=== PATIENT | female | born 1980 | race Caucasian/White ===

== ENCOUNTER → 2019-09-04 10:00 | Outpatient (CLI) | payer OTHER, SELFPAY ==
[2019-09-13 15:22] LABS: HPV APTIMA, High Risk Negative (Negative); HPV Reflexed? YES, CHARGE PATIENT
== END ==
PROVIDERS: Referring Provider Obstetrics & Gynecology; Visit Provider Obstetrics & Gynecology
DX: Z12.4 Encounter for screening for malignant neoplasm of cervix (principal)
CPT/HCPCS: 87624; 88175; G0145

== ENCOUNTER → 2019-10-17 15:05 | Outpatient (CLI) | payer OTHER, SELFPAY ==
--- NOTE | 2019-10-17 | IMM_PTH ---
PATIENT: SHIVA MERCADO LOC: [facility] U#:[id number] AGE/SX: 45/F ROOM: RE10/17/[address]: Dr. 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 Localization is made via biotin free immunoperoxidase method. Appropriate controls are performed and reacted as expected. Results on target cell population are indicated in the following table: RESULTS: ANTIBODY / CLONE RESULT P16 (E6H4) negative Ki-67 (30-9) negative These tests were developed and their performance characteristics determined by [facility]. They may not have been cleared or approved by the [place]. Food and Drug Administration. The FDA has determined that such clearance or approval is not necessary. The above immunohistochemical/dualISH markers are ordered and reviewed by the Pathologist. INTERPRETATION: A. Four quadrant of cervix: No evidence of dysplasia AM:cc 10/22/19
--- NOTE | 2019-10-17 15:05 | CER_PTH ---
PATIENT: SHIVA MERCADO LOC: [facility] U#:[id number] AGE/SX: 45/F ROOM: RE10/17/[address]: Dr. 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 Mild chronic inflammation. See comment. B. Endocervix, curettings: Strips of benign superficial endocervix. No evidence of dysplasia. AM:james 10/19/19 COMMENT A. Results from immunohistochemistry ([id number]) for surrogate HPV marker (p16) will be reported separately. Case has been reviewed in consultation with Dr. Bernabe who concurs with the above diagnosis. IDC:[email or web address] MICROSCOPIC DESCRIPTION Slides are reviewed. GROSS DESCRIPTION A - Received in fixative is one container labeled with the patient's name and designated four quadrant of cervix. The specimen consists of multiple irregular fragments of light navarrete soft tissue that in aggregate measure 0.5 x 0.5 x 0.1 cm. The specimen is totally submitted in one cassette. B - Received in fixative is one container labeled with the patient's name and designated ECC. The specimen consists of multiple fragments of hemorrhagic mucoid tissue that in aggregate measure 2 x 1..5 x 0.2 cm. The specimen is totally submitted in one cassette. / LORIE:james 10/18/19 TC:3 CPT: 80734 x2
== END ==
PROVIDERS: Referring Provider Obstetrics & Gynecology; Visit Provider Obstetrics & Gynecology
DX: R87.610 Atypical squamous cells of undetermined significance on cytologic smear of cervix (ASC-US) (principal)
CPT/HCPCS: 88305; 88341; 88342

== ENCOUNTER → 2020-09-15 | Outpatient (CLI) | payer OTHER, SELFPAY ==
[2020-09-22 16:46] LABS: HPV APTIMA, High Risk Negative (Negative)
[2020-09-22 16:47] LABS: HPV Reflexed? YES, CHARGE PATIENT
== END | disposition home or self-care (01) ==
LOC: LABSPEC 14:44
PROVIDERS: Visit Provider Obstetrics & Gynecology
DX: Z12.4 Encounter for screening for malignant neoplasm of cervix (principal)
CPT/HCPCS: 87624; 88175; G0145

== ENCOUNTER → 2021-09-16 | Outpatient (CLI) | payer OTHER, SELFPAY ==
[2021-09-19 19:53] LABS: HPV APTIMA, High Risk Negative (Negative); HPV Reflexed? YES, CHARGE PATIENT
== END | disposition home or self-care (01) ==
LOC: LABSPEC 11:40
PROVIDERS: Visit Provider Obstetrics & Gynecology
DX: Z12.4 Encounter for screening for malignant neoplasm of cervix (principal)
CPT/HCPCS: 87624; 88175; G0145